=== PATIENT | male | born 1990 | race Caucasian/White ===

== ENCOUNTER 2016-10-10 18:45 | Emergency (ER) | payer SELFPAY ==
[2016-10-10 19:06] VITALS: BP 125/65
--- NOTE | 2016-10-10 20:04 | ERNOTE ---
Medical Problem HPI - Narrative Date of Service: 10/10/16 - RIGHT EAR PAIN - General Chief Complaint: General Assessment Time Seen by Provider: 10/10/16 20:02 Source: patient - Immun/Allergies/Home Medications Immunizations: IMMUNIZATION HX Immunizations Up to Date Yes History of Influenza Vaccine No Allergies/Adverse Reactions: Allergies No Known Allergies Allergy (Verified 10/10/16 19:05) Home Medications: HOME MEDICATIONS NK [No Home Medication] 10/10/16 [Last Taken Unknown] - History of Present History Narrative: C/O PAIN AND SWELLING BEHIND R EAR . 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 DENIES ANY KNOWN TRAUMA . NOT DOING ANY TREATMENT AT PRESENT. SAYS HE JUST NOTICED IT TODAY. Review of Systems - Review of Systems Constitutional: Present: See HPI Skin: Present: See HPI, other - RED SODRE IRRITATED AREA BEHIND RIGHT EAR All Other Systems: All systems neg except as marked - Patient's Past Medical History Patient History - Medical: ADHD, Bipolar, GERD, Seizures Patient History - Cardiac/Respiratory: Pneumonia Patient History - Cancer: No Hx of Cancer Patient History - Surgical Procedures: EGD, T & A Patient History - Other: None - Family History Mother Family History - Medical: Arthritis, Fibromyalgia - Social History Living Situations: home Abuse History: No History of abuse Psych History: Hx of Anxiety, Hx of Bipolar Disorder Smoking Status: Current every day smoker Patient requests Smoking Cessation Consult: No Initiate information on Smoking Cessation: No Alcohol Use: rarely Drug Use: other - Immunizations Immunizations Up to Date: Yes History of Influenza Vaccine: No Physical Exam - Physical Exam General Appearance: Present: wd/wn, alert, mild distress, anxious Eye Exam: Normal inspection: bilateral Ears, Nose, Throat: Present: normal except - - HE HAS A .6 CM WIDE X 3 CM LONG AREA OF SUPERFICIAL ERYTHEMA OVERLYING MASTOID , BEHICN HIS RIGHT EAR. THERE IS NO SWELLING OR DRAINAGE. THE SUPERIOR PORTION LOOKS LIKE IT COULD BE FROM A SUPERFICIAL SCRAPE OR MAYBE A BUG BITE. THERE IS NO LYMPHADENOPATHY AND REST OF ENT IS NEGATIVE EXCEPT HE HAS POOR DENTITION. ED Progress - Vital Signs Vital Signs: Vital Signs 10/10/16 10/10/16 18:46 19:00 Temperature 36.5 C Pulse Rate 84 Respiratory 20 Rate Blood Pressure 110/66 125/65 O2 Sat by Pulse 97 Oximetry - Progress/Reassessment Chief Complaint: General Assessment Departure - Departure Clinical Impression: Skin abnormality Disposition: Home Follow Up Needed Condition: Good Instructions: Rash, [id number] Additional Instructions: IT IS UNCLEAR WHAT CAUSED THIS RASH AREA. IT IS VERY SUPERFICIAL AT PRESENT. IT COULD BE FROM A MINOR SCRATCH OR SCRAPE , OR BUG BITE OR EVEN POISON KALINA. IT DOES NOT APPEAR LIKE AN ABCESS. BECAUSE OF YOUR CONCERN WITH MRSA YOU SHOULD CLEAN THE AREA WELL WITH SOAP AND WATER 3-4 TIMES A DAY. PAT THE AREA DRY AFTER AND APPLY THE BACTROBAN OINTMENT A PRECAUTION. IF IT IS WORSE BE SURE TO FOLLOW UP WITH YOUR FAMILY DOCTOR FOR A RECHECK.
[2016-10-10] MEDS ORDERED: MUPIROCIN 22 APPL TUBE TP ONE ×2 (20:22→20:28)
[2016-10-10] MEDS ORDERED: ZIPRASIDONE HCL 20 MG CAPSULE PO ONE (20:42)
--- OUTSIDE RECORDS SUMMARY | 2016-10-10 20:48 | XMS REPORT | CCD ---
:1990 Author Name TIANA COLLINS Address [address] Unavailable [place], [place] [id number] Care Team Providers Name Role Phone SELINA LAINEZ Attending Physician Unavailable Vital Signs Unknown or Not Available. Allergies Allergy Code Allergy Type Reaction Status No Known Drug Allergies 0 No known drug allergies Active Procedures Procedure Code Procedure Type Date CHEST [id number] 05/23/2015 History of Immunizations Immunization Code Date MMR 03 07/27/2007 MMR 03 04/05/2007 Hep B, adolescent or pediatric 08 05/03/2007 Hep B, adolescent or pediatric 08 04/05/2007 IPV 10 07/27/2007 IPV 10 04/05/2007 pneumococcal polysaccharide PPV23 33 09/16/2003 TST-PPD intradermal 96 04/05/2007 Td (adult) preservative free 113 09/21/2007 meningococcal MCV4P 114 04/05/2007 Td(adult) unspecified formulation 139 12/24/2006 no vaccine administered 998 1991 Problems Problem Code Start Date Resolved Date Status CONTUSION OF LOWER LEG [id number] 03/02/2013 Active Results Unknown or Not Available. Active Medications Unknown or Not Available. Medications Administered During Visit Unknown or Not Available. Encounters Encounter Diagnosis Diagnosis Code Start Date Acute pharyngitis, unspecified J029 05/23/2015 Social History Smoking Status Code Start Date End Date Current every day smoker [id number] Patient Decision Aids Unknown or Not Available. Discharge Instructions You were admitted to [facility] on 05/23/2015 with a principal diagnosis of Acute pharyngitis, unspecified. You were discharged from [facility] on 05/23/2015. Should you have any questions prior to discharge, please contact a member of your healthcare team. If you have left the hospital and have any questions, please contact your primary care physician. Chief Complaint and Reason For Visit Chief Complaint Date of Onset ILL Function Status Unknown or Not Available. Plan of Care Unknown or Not Available. Referral/Transition of Care Unknown or Not Available.
--- OUTSIDE RECORDS SUMMARY | 2016-10-10 20:48 | XMS REPORT | Continuity of Care Document ---
:1990 Author Organization [facility] ([facility]) Address [address] [place] [address] Phone [phone] Care Team Providers Name Role Phone Provider, No-Primary Care Primary Care Provider Unavailable Source Comments This disclosure is being made pursuant to the Care Everywhere program, applicable federal and state laws, and may not contain all informaitonavailable regarding this patient.[facility] ([facility]) Active Allergies and Adverse Reactions No Known Allergies Current Medications Prescription Sig. Disp. Refills Start Date End Date Status amoxicillin 500 mg Take 500 mg by mouth Active capsule 3 times daily. traMADol 50 mg tablet Take 50 mg by mouth 4 Active times daily as needed. HYDROcodone-acetaminop Take 1 Tab by mouth 20 Tab 0 05/07/2014 Active hen 5-325 mg per every 4 hours as tablet needed for Pain. DO NOT EXCEED 3,000 MG ACETAMINOPHEN PER DAY FROM ALL SOURCES Indications: PAIN ibuprofen 800 mg Take 1 Tab by mouth 20 Tab 0 05/07/2014 Active tablet every 6 hours as needed for Pain. DO NOT EXCEED 3,200 MG IBUPROFEN PER DAY FROM ALL SOURCES Indications: PAIN HYDROcodone-acetaminop Take 1 Tab by mouth 12 Tab 0 02/05/2015 Active hen 5-325 mg per every 4 hours as tablet needed for Pain DO NOT EXCEED 3,000 MG ACETAMINOPHEN PER DAY FROM ALL SOURCES ibuprofen 800 mg Take 1 Tab (800 mg 20 Tab 0 02/05/2015 Active tablet total) by mouth every 6 hours as needed for Pain DO NOT EXCEED 3,200 MG IBUPROFEN PER DAY FROM ALL SOURCES chlorhexidine 0.12 % Rinse with 10 ML for 473 mL 0 02/05/2015 Active oral rinse 30 seconds twice daily for 10 days. Swish and spit out excess. Nothing by mouth for 30 minutes. Active Problems Problem Noted Date Suicidal ideation 11/27/2007 Social History Tobacco Use Types Packs/Day Years Used Date Current Some Day Smoker Cigarettes 0.25 12 Smokeless Tobacco: Former User Tobacco Cessation:Ready to Quit: No Comments: Last Filed Vital Signs Vital Sign Reading Time Taken Blood Pressure 104/64 02/05/2015 4:23 PM CDT Pulse 60 02/05/2015 3:54 PM CDT Temperature 36.1 C (97 F) 02/05/2015 3:54 PM CDT Respiratory Rate 18 11/28/2007 8:00 AM CDT Height 1.829 m (6') 02/05/2015 3:54 PM CDT Weight 70.308 kg (155 lb) 02/05/2015 3:54 PM CDT Body Mass Index 21.02 02/05/2015 3:54 PM CDT Oxygen Saturation 100% 02/05/2015 3:54 PM CDT Plan of Care Health Maintenance Due Date Last Done Comments Hepatitis B Vaccine (1 of 3 - Primary Series) 1991 HPV Vaccine (1 of 3 - Male 3 Dose Series) 2002 Tdap Vaccine 2002 Lipid Disorder Screening 2009 MMR Vaccine 2009 Td Vaccine 2009 Varicella Vaccine (1 of 2 - Adult - No Evidence of 2009 Immunity) Pneumococcal Vaccine (1 of 1 - PPSV23) 2010 Influenza Vaccine: Seasonal (#1) 02/09/2016 Results from Last 3 Months Not on file
--- OUTSIDE RECORDS SUMMARY | 2016-10-10 20:48 | XMS REPORT | CCD ---
:1990 Author Name TIANA COLLINS Address [address] Unavailable [place], [place] [id number] Care Team Providers Name Role Phone MAIDA GERMAN Attending Physician Unavailable Vital Signs Unknown or Not Available. Allergies Allergy Code Allergy Type Reaction Status No Known Drug Allergies 0 No known drug allergies Active Procedures Unknown or Not Available. History of Immunizations Immunization Code Date MMR [...] Resolved Date Status CONTUSION OF LOWER LEG [id number] 03/02/2013 Active Results Unknown or Not Available. Active Medications Unknown or Not Available. Medications Administered During Visit Unknown or Not Available. Encounters Encounter Diagnosis Diagnosis Code Start Date Other chronic sinusitis J328 05/28/2015 Social History Smoking Status Code Start Date End Date Current every day smoker [id number] Patient Decision Aids Unknown or Not Available. Discharge Instructions You were admitted to [facility] on 05/28/2015 with a principal diagnosis of Other chronic sinusitis. You were discharged from [facility] on 05/28/2015. Should you have any questions prior to discharge, please contact a member of your healthcare team. If you have left the hospital and have any questions, please contact your primary care physician. Chief Complaint and Reason For Visit Unknown or Not Available. Function Status Unknown or Not Available. Plan of Care Unknown or Not Available. Referral/Transition of Care Unknown or Not Available.
== END 2016-10-10 20:46 | disposition home or self-care (01) ==
LOC: ER 18:45
DX: R21 Rash and other nonspecific skin eruption (principal); F17.200 Nicotine dependence, unspecified, uncomplicated

== ENCOUNTER 2016-11-10 19:19 | Emergency (ER) | payer MEDICAID ==
[2016-11-10 19:33] VITALS: BP 119/63
--- NOTE | 2016-11-10 19:38 | ERNOTE ---
Back Pain ER HPI Time Seen by Provider: 11/10/16 19:24 Source: patient Exam Limitations: no limitations Immunizations: IMMUNIZATION HX Immunizations Up to Date Yes History of Influenza Vaccine No Hx Pneumococcal Vaccination No Allergies/Adverse Reactions: Allergies No Known Allergies Allergy (Verified 11/10/16 19:33) Home Medications: HOME MEDICATIONS Cyclobenzaprine HCl [Flexeril] 10 mg PO TID PRN #30 tab 11/10/16 [Last Taken Unknown] Narrative: Patient has had back pain for about two months.He denies any injury, the pain increased slowly in intensity. Most recently he started to have insureance again and the pain got a lot worse so he is coming for evaluation. He has had a history of arthritis diagnosed at age 17, not sure about the exact diagnosis, has been taking naproxen with only little relieve. He works as a fire protection equipment technician and has just kept pushing through the pain, which now radiates down both legs to his ankles Timing: Reports: constant, getting worse Quality/Severity: Reports: moderate Location of pain: Reports: lower back, other Recent Injury?: Reports: no Modifying Factors - (Worsens): Reports: movement flexion Associated Symptoms: Denies: constipation/incontinence, nausea/vomiting Prior Treament: Denies: recently seen Review of Systems - Review of Systems Constitutional: Absent: recent illness, fever ENT: Absent: nose congestion Cardiology: Absent: chest pain, palpitations Gastrointestinal/Abdominal: Absent: nausea, vomiting Genitourinary: Present: no symptoms reported Musculoskeletal: Present: See HPI, back pain Neurological: Present: tingling - both thighs - Patient's Past Medical History Patient History - Medical: ADHD, Arthritis, Bipolar, GERD, Other Patient History - Cardiac/Respiratory: Hypertension, Pneumonia Patient History - Cancer: No Hx of Cancer Patient History - Surgical Procedures: EGD, T & A, Other Patient History - Other: None - Family History Mother Family History - Medical: Arthritis, Fibromyalgia Family History - Cancer: No pertinent family hx - Social History Living Situations: home Abuse History: No History of abuse Psych History: Hx of Anxiety, Hx of Bipolar Disorder Smoking Status: Current every day smoker Cigarettes Packs Per Day: 0.2 Alcohol Use: rarely Drug Use: other - Immunizations Immunizations Up to Date: Yes Hx Pneumococcal Vaccination: No History of Influenza Vaccine: No Physical Exam - Physical Exam General Appearance: Present: wd/wn, alert, no apparent distress Respiratory: Present: no respiratory distress, normal breath sounds, no accessory muscle use, lungs clear Cardiovascular/Chest: Present: regular rate, rhythm, no murmur Back Exam: Present: normal inspection, vertebral tenderness - lumber, muscle spasm Extremity Exam: Present: no edema Neurological Exam: Present: alert, oriented, normal mood/affect, no motor/ sensory deficits, other - pain on straight leg raise bilateral DTR: N=norm/NB=norm/brisk/A=abs/DD=dull/dimin/HC=hyperactive: Knee (R): Normal, Knee (L): Normal Skin Exam: Present: normal color, warm/dry ED Progress - Vital Signs Patient's Vital Signs:: I have reviewed the patient's vital signs. Vital Signs: Vital Signs 11/10/16 19:25 Temperature 36.9 C Pulse Rate 81 Respiratory 16 Rate Blood Pressure 119/63 O2 Sat by Pulse 97 Oximetry - Progress/Reassessment Progress Note-Subjective: 11/10/16 19:49 discussed options with patient imaging vs symptomatic treatment, patient wanted just muscle relaxants at this time, discussed need for follow up Departure Clinical Impression: Sciatica Qualifiers: Laterality: bilateral Qualified Code(s): M54.31 - Sciatica, right side - Departure Disposition: Home self-care Condition: Good Instructions: Sciatica, [id number], Form - Excuse from Work, School, or Physical Activity Additional Instructions: call the [facility] for follow up Prescriptions: Cyclobenzaprine HCl [Flexeril] 10 mg PO TID PRN #30 tab PRN Reason: MUSCLE SPASMS
[2016-11-10] MEDS ORDERED: CYCLOBENZAPRINE HCL 10 MG TABLET PO ONE (19:46)
[2016-11-10] MEDS ORDERED: CYCLOBENZAPRINE HCL 10 MG TABLET ONE (19:49)
--- OUTSIDE RECORDS SUMMARY | 2016-11-10 20:08 | XMS REPORT | Continuity of Care Document ---
:1990 Author Organization [facility] ([facility]) Address [address] [place] [address] Phone [phone] Care Team Providers Name Role Phone Provider, No-Primary Care Primary Care Provider Unavailable Source Comments This disclosure is being made pursuant to the Care Everywhere program, applicable federal and state laws, and may not contain all informaitonavailable regarding this patient.[facility] ([facility]) Active Allergies and Adverse Reactions No Known [...]
== END 2016-11-10 19:54 | disposition home or self-care (01) ==
LOC: ER 19:19
DX: M54.31 Sciatica, right side (principal); Z72.0 Tobacco use